=== PATIENT | male | born 1985 | race Caucasian/White ===

== ENCOUNTER 2019-04-02 20:19 | Emergency (ER) | payer OTHER ==
[~2019-04-02] VITALS: Ht 188 cm; Wt 115.7 kg
[2019-04-02 20:23] VITALS: BP 133/81
--- NOTE | 2019-04-02 20:57 | NUR ---
33/M PRESENTS TO ED WITH FAMILY/FRIEND, C/O HEMORRHOIDS X1 MONTH. PT C/O RECTAL PAIN. REPORTS LBM 3 DAYS AGO WITH MINIMAL AMOUNT HARD STOOL. PT REPORTS EPISODE OF DIZZINESS AND NAUSEA 3 DAYS AGO RESOLVED BY REST AND HYDRATION. PT DENIES FEVER, N/V/D, DYSURIA OR ABD PAIN AT THIS TIME. AOX4, GCS 15, SKIN NORMAL WARM AND DRY, RR EVEN AND UNLABORED. HX HEMORRHOIDS; DENIES RX; OTC PAIN CREAMS
[2019-04-02 21:35] VITALS: BP 128/80
--- NOTE | 2019-04-02 21:35 | NUR ---
Patient discharged with v/s stable. Written and verbal after care instructions given and explained. Patient alert, oriented and verbalized understanding of instructions. Ambulatory with steady gait. All questions addressed prior to discharge. ID band removed. Patient advised to follow up with PMD. Rx of NAPROSYN, COLACE, AND HYDROCORTISONE ACETATE given. Patient educated on indication of medication including possible reaction and side effects. Opportunity to ask questions provided and answered.
== END 2019-04-02 21:35 | disposition home or self-care (01) ==
LOC: MED 20:19
DX: K64.9 Unspecified hemorrhoids (principal); K59.00 Constipation, unspecified; Z98.890 Other specified postprocedural states
CPT/HCPCS: 99282

== ENCOUNTER 2019-04-21 18:09 | Emergency (ER) | payer OTHER ==
[~2019-04-21] VITALS: Ht 190.5 cm; Wt 111.6 kg
[2019-04-21 18:09] VITALS: BP 120/74
--- NOTE | 2019-04-21 18:09 | NUR ---
PATIENT AMBULATED TO ER BED 10.
--- NOTE | 2019-04-21 18:15 | NUR ---
PT IS A 33 Y/O MALE WHO PRESENTS TO THE ED C/O L GREAT TOE PAIN. PT STATES THAT IT STARTED HURTING X2 DAYS AGO. PT DENIES ANY TX/INJURY, 10/10 ACHING PAIN THAT DOES NOT RADIATE. NO OBVIOUS TX/DEFORMITY NOTED, CMS INTACT. NOTED MILD REDNESS AND SWELLING. PT DENIES CP, SOB, N/V/D. PT AWAKE AND ALERT, RR EVEN/UNLABORED. PT REPOSITIONED FOR COMFORT, BED IN LOWEST POSITION. ER MD NOTIFIED. WILL CONTINUE TO MONITOR. DENIES [facility]
--- NOTE | 2019-04-21 19:03 | NUR ---
PATIENT REPORT GIVEN TO PRATIBHA [place]. TRANSFER OF CARE AT THIS TIME.
--- NOTE | 2019-04-21 19:50 | NUR ---
DR. LEE AT BEDSIDE FOR EVALUATION.
[2019-04-21] MEDS ORDERED: KETOROLAC 60 MG/2 ML VIAL IM ONE (20:55)
[2019-04-21] MEDS ORDERED: HYDROcodone/APAP 5/325 MG 1 TAB TAB PO ONE (20:55)
[2019-04-21 21:15] VITALS: BP 122/71
--- NOTE | 2019-04-21 21:15 | NUR ---
Patient discharged with v/s stable. Written and verbal after care instructions given and explained. Patient alert, oriented and verbalized understanding of instructions. Ambulatory with steady gait. All questions addressed prior to discharge. ID band removed. Patient advised to follow up with PMD. Rx of INDOCIN given. Patient educated on indication of medication including possible reaction and side effects. Opportunity to ask questions provided and answered.
== END 2019-04-21 21:15 | disposition home or self-care (01) ==
LOC: MED 18:09
DX: M10.071 Idiopathic gout, right ankle and foot (principal)
CPT/HCPCS: 73660; 96372; 99283; J1885

== ENCOUNTER 2022-08-13 19:31 | Emergency (ER) | payer MEDICAID, OTHER ==
[~2022-08-13] VITALS: Ht 190.5 cm; Wt 122.5 kg
[2022-08-13 20:13] VITALS: BP 143/70
--- NOTE | 2022-08-13 20:19 | NUR ---
TO LOBBY FOLLOWING TRIAGE
[2022-08-13] MEDS ORDERED: INDO-323 PO (21:57)
[2022-08-13] MEDS ORDERED: PRED20TA6 PO (21:57)
[2022-08-13 22:30] VITALS: BP 143/70
--- NOTE | 2022-08-13 22:30 | NUR ---
Patient discharged with v/s stable. Written and verbal after care instructions given and explained. Patient alert, oriented and verbalized understanding of instructions. Ambulatory with steady gait. All questions addressed prior to discharge. ID band removed. Patient advised to follow up with PMD. Rx of INDOCIN, PREDNISONE given. Patient educated on indication of medication including possible reaction and side effects. Opportunity to ask questions provided and answered.
== END 2022-08-14 11:29 | disposition home or self-care (01) ==
LOC: MED 19:31
DX: M10.9 Gout, unspecified (principal)
CPT/HCPCS: 73630; 99283